=== PATIENT | male | born 1985 ===

== ENCOUNTER 2024-10-16 13:12 | Outpatient (REF) | payer OTHER, SELFPAY ==
--- OUTSIDE RECORDS SUMMARY | 2024-10-16 15:38 | XMS_ITS | Clinical Summary ---
Author Organization [facility] ity Address [address] [place] [address] Care Team Providers Care Employment Consultant Name Role Phone Unavailable Primary Care Provider [...]
[2024-10-18 14:43] LABS: Quantiferon TB Gold Plus 1 NEGATIVE (NEGATIVE); TB Test (QFT) Mitogen -Nil >10.00 IU/mL; TB Test (QFT) Nil 0.01 IU/mL; TB Test (QFT) Plus TB1 -Nil 0.01 IU/mL; TB Test (QFT) Plus TB2 -Nil 0.01 IU/mL
== END 2024-10-16 13:13 | disposition home or self-care (01) ==
LOC: HO.LAB 13:12
PROVIDERS: Absent Provider Physician Assistant; Visit Provider Physician Assistant
DX: Z02.0 Encounter for examination for admission to educational institution (principal); Z11.1 Encounter for screening for respiratory tuberculosis
CPT/HCPCS: 36415; 86480; 99202

== ENCOUNTER 2024-10-16 13:12 | Outpatient (AMB) | payer OTHER, SELFPAY ==
--- NOTE | 2024-10-16 13:18 | MHC.OFFWIV ---
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 Need serum test yearly No testing + in past No exposures known No cough, congestion, night sweats. 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 Speaking full sentences. Skin: Warm dry throughout Eye: EOMI Respiratory: No tachypnea Cardiac: No tachycardia Neurology: Alert. No aphasia or facial droop. Gait without abnormality Psych: Good mood and affect Assessment & Plan Assessment & Plan (1) Tuberculosis screening: Code(s): Z11.1 - Encounter for screening for respiratory tuberculosis Plan: Pt seen and evaluated TB test ordered Staff in front will help set pt up with PCP/provide information on how to do this All questions answered at time of d/c. Pt aware they draw it here in lab until noon but at the hospital until 3. He is aware it is a send out test Orders: Orders Quantiferon TB Gold Plus 1 Today Coding Level of Care Code New Pt Level 2 (83017) Diagnoses Tuberculosis screening Z11.1
[2024-10-16 13:23] VITALS: BP 118/70; PULSE 73; TEMP 36.8; O2SAT 99; BMI 21.8
--- OUTSIDE RECORDS SUMMARY | 2024-10-16 14:31 | XMS_ITS | Clinical Summary ---
Author Organization [facility] ity Address [address] [place] [address] Care Team Providers Care Missile Facilities Repairer Name Role Phone Unavailable Primary Care Provider Unavailabl e Social History Tobacco Use Types Packs/Day Years Used Date Smoking Tobacco: Never Assessed Sex and Gender Information Value Date Recorded Sex Assigned at Not on file Legal Sex Male 3:43 PM EDT Gender Identity Not on file Sexual Orientation Not on file Plan of Treatment Health Maintenance Due Date Last Done Comments DTaP,Tdap,and Td Vaccines (1 - Tdap) 01/21/2004 Hepatitis B Vaccines (1 of 3 - 19+ 3-dose series) 01/21/2004 COVID-19 Vaccine (2023-2 5 season) 2024 Cholesterol Screening (Lipid Panel) 03/28/2024 Depression Screening 03/28/2024 HIV Screening 03/28/2024 Hepatitis C Screening 03/28/2024 Social Influencers of Health Screening 03/28/2024 Influenza Vaccine (Season Ended) 2025 HIB Vaccines Aged Out No longer eligi ble based on patient's age to complete this topic HPV Vaccines Aged Out No longer eligi ble based on patient's age to complete this topic Hepatitis A Vaccines Aged Out No long er eligible based on patient's age to complete this topic IPV Vaccines Aged Out No longer eligi ble based on patient's age to complete this topic MMR Vaccines Aged Out No longer eligi ble based on patient's age to complete this topic Meningococcal ACWY Vaccine Aged Out N o longer eligible based on patient's age to complete this topic Meningococcal B Vaccine Aged Out No l onger eligible based on patient's age to complete this topic Pneumococcal Vaccine: Pediat rics (0 to 5 Years) and At-Risk Patients (6 to 64 Years) Aged Out No longer eligible b ased on patient's age to complete this topic RSV Immunization Patients Un hayde 20 months Aged Out No longer eligible b ased on patient's age to complete this topic Varicella Vaccines Aged Out No longer eligible based on patient's age to complete this topic
== END 2024-10-16 14:02 | disposition home or self-care (01) ==
PROVIDERS: Visit Provider Physician Assistant
DX: Z11.1 Encounter for screening for respiratory tuberculosis (principal)